=== PATIENT | female | born 1970 | race Caucasian/White ===

== ENCOUNTER 2020-02-18 18:17 | Observation (INO) ==
[2020-02-18] MEDS ORDERED: 0.9 % Sodium Chloride 1,000 ML IVC ONE (19:17)
[2020-02-18] MEDS ORDERED: Acetaminophen 325 MG TABLET PO ONE (19:40)
[2020-02-18 19:47] LABS: Basophils # 0.1 K/mcL (0.0-0.2); Basophils % 0.9 %; Eosinophils # 0.2 K/mcL (0.0-0.6); Eosinophils % 2.1 %; Hemoglobin 7.3 g/dL (11.5-15.4); Immature Granulocytes % 0.4 % (0-4); Lymphocytes # 2.4 K/mcL (0.6-4.6); Lymphocytes % 30.3 %; Mean Corpuscular HGB Conc 30.4 g/dL (31.6-35.5); Mean Corpuscular Hemoglobin 29.6 pg (28.0-33.3); Mean Corpuscular Volume 97.2 fL (83.0-100.0); Mean Platelet Volume 9.9 fL (9.4-12.4); Monocytes # 0.7 K/mcL (0.0-1.3); Monocytes % 8.8 %; Neutrophils # 4.5 K/mcL (1.6-8.9); Platelet Count 391 K/mcL (140-400); Red Blood Count 2.47 M/mcL (3.82-4.97); Red Cell Distribution Width 15.1 % (11.5-14.5); Segmented Neutrophils % 57.5 %; White Blood Count 7.8 K/mcL (4.3-11.1)
[2020-02-18 20:05] LABS: Prothrombin Time 11.9 Seconds (9.4-12.1)
[2020-02-18 20:09] LABS: Alanine Aminotransferase 20 Units/L (7-52); Albumin/Globulin Ratio 1.4 (1.1-2.2); Alkaline Phosphatase 50 Units/L (34-104); Aspartate Amino Transferase 14 Units/L (13-39); BUN/Creatinine Ratio 23 (6-26); Bilirubin,Total 0.2 mg/dL (0.3-1.0); Blood Urea Nitrogen 14 mg/dL (6-20); Calcium 9.1 mg/dL (8.6-10.3); Carbon Dioxide 24 mEq/L (23-29); Chloride 108 mEq/L (98-107); Globulin 2.9 g/dL (2.4-3.5); Glucose 119 mg/dL (70-105); Osmolality,Calculated 290 (280-300); Potassium 3.6 mEq/L (3.5-5.1); Sodium 139 mEq/L (136-145); Total Protein 6.9 g/dL (6.4-8.9); eGFR For African Americans > 60 (> 60); eGFR For Non-African Americans > 60 (> 60)
[2020-02-18] MEDS ORDERED: Nicotine 14 MG PATCH.TD24 TD ONE (23:14)
[2020-02-19] MEDS ORDERED: 0.9 % Sodium Chloride 250 ML ONE ×2 (00:29→03:49)
[2020-02-19] MEDS ORDERED: Acetaminophen 325 MG TABLET PO PRN (07:26)
[2020-02-19 07:50] VITALS: BP 124/74
== END 2020-02-19 11:31 | disposition home or self-care (01) ==
LOC: EMEROOARM 18:17 → 1NENUOBS 18:17
PROVIDERS: ADMIT Obstetrics & Gynecology; ATTEND Obstetrics & Gynecology